=== PATIENT | male | born 1990 | race Caucasian/White ===

== ENCOUNTER → 2019-07-05 | Outpatient (CLI) | payer OTHER ==
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
== END ==
LOC: CT 11:34
PROVIDERS: ATTEND Specialist
DX: S92.101A Unspecified fracture of right talus, initial encounter for closed fracture (principal)

== ENCOUNTER → 2020-03-21 | Outpatient (CLI) | payer OTHER ==
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
== END ==
LOC: RAD 07:29
PROVIDERS: ATTEND Student in an Organized Health Care Education/Training Program
DX: M25.571 Pain in right ankle and joints of right foot (principal); Z87.311 Personal history of (healed) other pathological fracture

== ENCOUNTER 2021-03-11 19:02 | Emergency (ER) | payer OTHER ==
[~2021-03-11] VITALS: Ht 180.3 cm; Wt 158.8 kg
[2021-03-11] MEDS ORDERED: HYDROCODONE/APAP 10MG-325MG TAB PO ONE (20:30)
[2021-03-11] MEDS: DIAZEPAM 5 MG TAB PO SCH ×2 (20:30→20:51)
[2021-03-11] MEDS ORDERED: DIAZEPAM 5 MG TAB ONE (20:41)
[2021-03-11] MEDS ORDERED: HYDROCODONE/APAP 10MG-325MG TAB ONE (20:41)
== END 2021-03-11 20:47 | disposition home or self-care (01) ==
LOC: ER 20:35
DX: S13.4XXA Sprain of ligaments of cervical spine, initial encounter (principal); V43.52XA Car driver injured in collision with other type car in traffic accident, initial encounter; Y92.488 Other paved roadways as the place of occurrence of the external cause; F17.210 Nicotine dependence, cigarettes, uncomplicated